=== PATIENT | male | born 1995 | race Caucasian/White ===

== ENCOUNTER 2017-11-12 14:22 | Emergency (ER) | payer BC ==
[2017-11-12 14:51] VITALS: BP 146/74
--- NOTE | 2017-11-12 15:30 | RAD ---
Indication: LEFT foot bruising and swelling following injury on Saturday. Pain at the fourth and fifth digits. Comparison: No relevant prior exams available on the [facility] for comparison. Technique: AP, lateral, and oblique views LEFT foot. REPORT AND IMPRESSION: #. Soft tissue swelling most prominent about the lateral forefoot. Negative for fracture or malalignment.
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
== END 2017-11-12 15:50 | disposition home or self-care (01) ==
LOC: UCCORT 14:22
DX: S93.602A Unspecified sprain of left foot, initial encounter (principal); S90.812A Abrasion, left foot, initial encounter; V86.56XA Driver of dirt bike or motor/cross bike injured in nontraffic accident, initial encounter; Y93.89 Activity, other specified; Y92.9 Unspecified place or not applicable; F17.210 Nicotine dependence, cigarettes, uncomplicated
CPT/HCPCS: 99211; G0463